=== PATIENT | male | born 1975 | race African-American/Black ===

== ENCOUNTER 2018-01-05 12:52 | Emergency (ER) | payer OTHER ==
--- NOTE | 2018-01-05 13:51 | RAD REPORT ---
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 TECHNIQUE: Axial 2 mm thick images of the cervical spine were obtained with sagittal and coronal rec onstruction images generated and reviewed. All CT scans are performed using dose optimization technique as appropriate and may include automated exposure control or mA/KV adjustment according to patient size. FINDINGS: Cervical body alignment is normal. C5-6 and C6-7 disc space narrowing seen. C5 body has a slight wedge configuration. This is not uncommon in this setting of degenerative disc and endplate ch oswald. No acute fracture changes seen in the C5 body or elsewhere in the cervical spine. Central canal detail is inherently limited. No gross evidence of acute disc herniation. Facet joints have normal a lignment. No paraspinal mass or hematoma. IMPRESSION: Cervical spine degenerative change present as detailed involving C5-6 and C6-7. No fracture or acute finding identifiable. Central canal detail is inherently limited. Concerns for cord injury, acute traumatic disc herniation or occult bone process can be addressed with MR imaging.
--- NOTE | 2018-01-05 15:15 | EDPHYS ---
Physician Documentation [facility] Name: Ferny Meek Age: 42 yrs Sex: Male : 1975 Arrival Date: 01/05/2018 Time: 12:54 Bed 26 Private MD: Abbe Lopez ED Physician Percy Jack HPI: 01/05 15:21 This 42 yrs old Black Male presents to ER via Ambulatory with complaints of Neck jr8 Injury, Fall Injury. 15:21 The patient or guardian complains of decreased range of motion, pain. The symptoms are jr8 located diffusely. Onset: The symptoms/episode began/occurred acutely, today. Context: The problem was sustained at work. Associated signs and symptoms: The patient has no apparent associated signs or symptoms. The pain does not radiate. Modifying factors: The symptoms are alleviated by remaining still, the symptoms are aggravated by movement. Severity of symptoms: At their worst the symptoms were mild, in the emergency department the symptoms are unchanged. The patient has not experienced similar symptoms in the past. The patient has not recently seen a physician. 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 No ejection from vehicle. Stated that he felt neck jolt. Denies hitting head or neck. Complains only of neck pain . Historical: - Allergies: 13:22 No Known Allergies; aj - Home Meds: 13:22 None [Active]; aj - PMHx: 13:22 None; aj - PSHx: 13:22 None; aj - Immunization history: Last tetanus immunization: unknown. - Social history:: Smoking status: Patient uses tobacco products, smokes one-half pack cigarettes per day. - Ebola Screening: : No symptoms or risks identified at this time. ROS: 15:21 Eyes: Negative for injury, pain, redness, and discharge, ENT: Negative for injury, jr8 pain, and discharge, Cardiovascular: Negative for chest pain, palpitations, and edema, Respiratory: Negative for shortness of breath, cough, wheezing, and pleuritic chest pain, Abdomen/GI: Negative for abdominal pain, nausea, vomiting, diarrhea, and constipation, Back: Negative for injury and pain, MS/Extremity: Negative for injury and deformity, Skin: Negative for injury, rash, and discoloration, Neuro: Negative for headache, weakness, numbness, tingling, and seizure. 15:21 Neck: Positive for pain with movement, tenderness, Negative for pain at rest, bony tenderness. Exam: 15:21 Head/Face: Normocephalic, atraumatic. Eyes: Pupils equal round and reactive to light, jr8 extra-ocular motions intact. Lids and lashes normal. Conjunctiva and sclera are non-icteric and not injected. Cornea within normal limits. Periorbital areas with no swelling, redness, or edema. ENT: Nares patent. No nasal discharge, no septal abnormalities noted. Tympanic membranes are normal and external auditory canals are clear. Oropharynx with no redness, swelling, or masses, exudates, or evidence of obstruction, uvula midline. Mucous membranes moist. Chest/axilla: Normal chest wall appearance and motion. Nontender with no deformity. No lesions are appreciated. Cardiovascular: Regular rate and rhythm with a normal S1 and S2. No gallops, murmurs, or rubs. Normal PMI, no JVD. No pulse deficits. Respiratory: Lungs have equal breath sounds bilaterally, clear to auscultation and percussion. No rales, rhonchi or wheezes noted. No increased work of breathing, no retractions or nasal flaring. Abdomen/GI: Soft, non-tender, with normal bowel sounds. No distension or tympany. No guarding or rebound. No evidence of tenderness throughout. Back: No spinal tenderness. No costovertebral tenderness. Full range of motion. Skin: Warm, dry with normal turgor. Normal color with no rashes, no lesions, and no evidence of cellulitis. MS/ Extremity: Pulses equal, no cyanosis. Neurovascular intact. Full, normal range of motion. Neuro: Awake and alert, GCS 15, oriented to person, place, time, and situation. Cranial nerves II-XII grossly intact. Motor strength 5/5 in all extremities. Sensory grossly intact. Cerebellar exam normal. Normal gait. 15:21 Neck: External neck: tenderness, that is mild, of the left mid cervical area and left trapezius, C-spine: vertebral tenderness, is not appreciated, Thyroid: appears normal, Trachea: is midline with no obvious abnormalities, ROM/movement: pain, that is mild, with any movement. Vital Signs: 12:57 BP 110 / 77; Pulse 70; Resp 16; Temp 97.9; Pulse Ox 97% on R/A; Weight 79.38 kg; Height aj 5 ft. 10 in. (177.80 cm); 15:00 BP 109 / 74; Pulse 67; Resp 18; Pulse Ox 98% ; aj1 12:57 Body Mass Index 25.11 (79.38 kg, 177.80 cm) aj Nunnelly Coma Score: 12:57 Eye Response: spontaneous(4). Verbal Response: oriented(5). Motor Response: obeys aj commands(6). Total: 15. Trauma Score (Adult): 12:57 Eye Response: spontaneous(1); Verbal Response: oriented(1); Motor Response: obeys aj commands(2); Systolic BP: > 89 mm Hg(4); Respiratory Rate: 10 to 29 per min(4); Nunnelly Score: 15; Trauma Score: 12 MDM: 14:34 Patient medically screened. jr8 15:14 Data reviewed: vital signs, nurses notes, radiologic studies, CT scan, and as a result, jr8 I will discharge patient. Data interpreted: Pulse oximetry: on room air is 98 %. Interpretation: normal. Counseling: I had a detailed discussion with the patient and/or guardian regarding: the historical points, exam findings, and any diagnostic results supporting the discharge/admit diagnosis, radiology results, the need for outpatient follow up, a family practitioner, to return to the emergency department if symptoms worsen or persist or if there are any questions or concerns that arise at home. 01/05 13:24 Order name: CT C Spine; Complete Time: 14:33 aj Administered Medications: No medications were administered Disposition: 01/05/18 15:14 Discharged to Home. Impression: Sprain of ligaments of cervical spine. - Condition is Stable. - Discharge Instructions: Cervical Sprain. - Prescriptions for Ibuprofen 800 mg Oral Tablet - take 1 tablet by ORAL route every 12 hours As needed take with food; 20 tablet. Cyclobenzaprine 10 mg Oral Tablet - take 1 tablet by ORAL route every 8 hours As needed; 30 tablet. - Medication Reconciliation Form, Thank You Letter, Antibiotic Education, Prescription Opioid Use form. - Follow up: Private Physician; When: 1 week; Reason: Recheck today's complaints, Continuance of care, Re-evaluation by your physician. - Problem is new. - Symptoms have improved. Addendum: 01/07/2018 13:35 Co-signature as Attending Physician, Percy Jack MD. g s Signatures: Dispatcher [employer] Sanjuanita Bird RN RN aj1 Marifer Pillai RN RN aj Les Martinez PA PA jr8 Percy Jack MD MD gs Corrections: (The following items were deleted from the chart) 01/05 15:26 15:14 01/05/2018 15:14 Discharged to Home. Impression: Sprain of ligaments of cervical aj1 spine. Condition is Stable. Forms are Medication Reconciliation Form, Thank You Letter, Antibiotic Education, Prescription Opioid Use. Follow up: Private Physician; When: 1 week; Reason: Recheck today's complaints, Continuance of care, Re-evaluation by your physician. Problem is new. Symptoms have improved. jr8
--- NOTE | 2018-01-05 15:15 | ER ---
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 Patient remained in cab of forklift during fall. Patient reports pain to left side of neck. CMS intact in all extremities. Patient evaluated on scene by EMS. Care prior to arrival: None. Mechanism of Injury: Fall loading dock, approx 4 feet. Trauma event details: Injury occurred in the [facility], Injury occurred: in an industrial place of business Injury occurred: January 05, 2018 Injury occurred at: 11:45. 12:57 Acuity: YANELIS 4 aj 12:57 Method Of Arrival: Ambulatory aj 15:25 Transition of care: patient was not received from another setting of care. Onset of aj1 symptoms was January 05, 2018. Risk Assessment: Do you want to hurt yourself or someone else? Patient reports no desire to harm self or others. Initial Sepsis Screen: Does the patient meet any 2 criteria? No. Patient's initial sepsis screen is negative. Does the patient have a suspected source of infection? No. Patient's initial sepsis screen is negative. Trauma Activation: Alert Physician: ED Physician; Name: ; Notified At: ; Arrived At: Physician: General Surgeon; Name: not notified; Notified At: ; Arrived At: Physician: Radiology; Name: ; Notified At: ; Arrived At: Physician: Respiratory; Name: ; Notified At: ; Arrived At: Physician: Lab; Name: ; Notified At: ; Arrived At: Historical: - Allergies: 13:22 No Known Allergies; aj - Home Meds: 13:22 None [Active]; aj - PMHx: 13:22 None; aj - PSHx: 13:22 None; aj - Immunization history: Last tetanus immunization: unknown. - Social history:: Smoking status: Patient uses tobacco products, smokes one-half pack cigarettes per day. - Ebola Screening: : No symptoms or risks identified at this time. Screenin:02 Abuse screen: Denies threats or abuse. Denies injuries from another. Nutritional aj1 screening: No deficits noted. Tuberculosis screening: No symptoms or risk factors identified. 15:25 Fall Risk None identified. aj1 Primary Survey: 12:57 A: Airway: patent. Breathing/Chest: Respiratory pattern: regular, Respiratory effort: aj spontaneous, unlabored, Breath sounds: clear, Chest inspection: symmetrical rise and fall of the chest. Circulation: Skin color: pink, Skin temperature: warm, dry. Disability Alert. Assessment: 12:57 General: Appears in no apparent distress. comfortable, Behavior is calm, cooperative, aj appropriate for age. Pain: Complains of pain in left mid cervical area, left trapezius, lower cervical area, left posterior aspect of neck, left lateral aspect of neck and left anterior aspect of neck. Neuro: Level of Consciousness is awake, alert, obeys commands, Oriented to person, place, time, situation, Appropriate for age. Respiratory: Airway is patent Respiratory effort is even, unlabored, Respiratory pattern is regular, symmetrical. Derm: Skin is intact, is healthy with good turgor, Skin is pink, warm \T\ dry. normal. Musculoskeletal: Reports pain in left mid cervical area, left trapezius, lower cervical area, left posterior aspect of neck, left lateral aspect of neck and left anterior aspect of neck. 15:00 General: Appears in no apparent distress. uncomfortable, Behavior is calm, cooperative. aj1 Pain: Complains of pain in neck. Neuro: Level of Consciousness is awake, alert, obeys commands, Oriented to person, place, time, situation, Gait is steady, Speech is normal, Facial symmetry appears normal. Cardiovascular: Patient's skin is warm and dry. Respiratory: Airway is patent Respiratory effort is even, unlabored, Respiratory pattern is regular, symmetrical. GI: No signs and/or symptoms were reported involving the gastrointestinal system. : No signs and/or symptoms were reported regarding the genitourinary system. EENT: No signs and/or symptoms were reported regarding the EENT system. Derm: No signs and/or symptoms reported regarding the dermatologic system. Skin is normal. Musculoskeletal: Reports neck pain, pt CT complete. Vital Signs: 12:57 BP 110 / 77; Pulse 70; Resp 16; Temp 97.9; Pulse Ox 97% on R/A; Weight 79.38 kg; Height aj 5 ft. 10 in. (177.80 cm); 15:00 BP 109 / 74; Pulse 67; Resp 18; Pulse Ox 98% ; aj1 12:57 Body Mass Index 25.11 (79.38 kg, 177.80 cm) aj Rima Coma Score: 12:57 Eye Response: spontaneous(4). Verbal Response: oriented(5). Motor Response: obeys aj commands(6). Total: 15. Trauma Score (Adult): 12:57 Eye Response: spontaneous(1); Verbal Response: oriented(1); Motor Response: obeys aj commands(2); Systolic BP: > 89 mm Hg(4); Respiratory Rate: 10 to 29 per min(4); Rima Score: 15; Trauma Score: 12 ED Course: 12:54 Patient arrived in ED. as 12:54 Abbe Lopez MD is Private Physician. as 13:20 Triage completed. aj 13:22 Arm band placed on left wrist. Patient placed in waiting room, Patient notified of wait aj time. 13:38 CT completed. Patient tolerated procedure well. Patient moved to CT via wheelchair. sw Patient moved back from CT. 13:40 CT C Spine In Process Unspecified. EDMS 14:23 Sanjuanita Gray RN is Primary Nurse. aj1 14:34 Les Martinez PA is PHCP. jr8 14:34 Percy Jack MD is Attending Physician. jr8 15:02 Patient has correct armband on for positive identification. Bed in low position. Call aj1 light in reach. Side rails up X 1. Spouse at bedside. 15:02 No provider procedures requiring assistance completed. aj1 15:24 Patient did not have IV access during this emergency room visit. aj1 Administered Medications: No medications were administered Outcome: 15:14 Discharge ordered by . jr8 15:25 Discharged to home ambulatory. aj1 15:25 Condition: good 15:25 Discharge instructions given to patient, Instructed on discharge instructions, follow up and referral plans. medication usage, Demonstrated understanding of instructions, follow-up care, medications, Prescriptions given X 2. 15:26 Patient left the ED. aj1 Signatures: Dispatcher [employer] EDFL Sanjuanita Gray RN RN ajMarifer Valdez RN RN aj Martinez, Amelia as Les Martinez PA PA jr8 Aneta Hernandes sw
== END 2018-01-05 15:26 | disposition home or self-care (01) ==
LOC: ER 12:52
DX: S13.4XXA Sprain of ligaments of cervical spine, initial encounter (principal); W19.XXXA Unspecified fall, initial encounter; Y93.89 Activity, other specified; Y92.89 Other specified places as the place of occurrence of the external cause; F17.210 Nicotine dependence, cigarettes, uncomplicated
CPT/HCPCS: 72125; 99284

== ENCOUNTER 2018-06-20 12:04 | Emergency (ER) | payer OTHER ==
--- NOTE | 2018-06-20 13:39 | RAD REPORT ---
EXAM DESCRIPTION: Riky Soriano (2 Views)06/20/2018 1:30 pm CLINICAL HISTORY: Chest pain COMPARISON: 2014 FINDINGS: The lungs appear clear of acute infiltrate. The heart is normal size IMPRESSION: No acute abnormalities displayed
[2018-06-20 14:59] LABS: Absolute Lymphocytes (CBC) 3.3 K/uL (0.7-4.9); Absolute Monocytes 0.5 K/uL (0.1-1.3); Absolute Neutrophil 2.4 K/uL (1.8-8.0); Basophils % 0.9 % (0-1.3); Eosinophils % 4.9 % (0-4.4); Hematocrit 43.5 % (39.6-49.0); Lymphocytes % 50.7 % (15.3-44.8); MCH 29.1 pg (27.0-35.0); MCV 87.3 fL (80-100); MPV 8.1 fL (7.6-11.3); Monocytes % 7.3 % (3.3-12.3); RBC Red Blood Cell Count 4.98 M/uL (4.33-5.43)
[2018-06-20 15:09] LABS: Protime INR 1.09
[2018-06-20] MEDS ORDERED: KETOROLAC 30 MG/ML INJ ONE (15:15)
[2018-06-20 15:22] LABS: ALT/SGPT 31 U/L (12-78); AST/SGOT 22 U/L (15-37); Alkaline Phosphatase 77 U/L (45-117); BUN Blood Urea Nitrogen 20 mg/dL (7-18); Bicarbonate 29 mmol/L (21-32); Bilirubin Direct < 0.1 mg/dL (0-0.2); Bilirubin Total 0.2 mg/dL (0.2-1.0); Glucose Level 86 mg/dL (74-106); Magnesium 2.4 mg/dL (1.8-2.4); NT PRO-BNP 9 pg/mL (<125); Potassium 4.5 mmol/L (3.5-5.1); Sodium Level 139 mmol/L (136-145); Troponin (Emerg Dept Use Only) < 0.02 ng/mL (0.0-0.045)
--- NOTE | 2018-06-20 15:30 | EKG ---
Test Date: 2018-06-20 Test Time: 12:13:01 [employer] Operator: LUIZ MEASUREMENT RESULTS: Intervals: Rate: 67 IN: 162 QRSD: 90 QT: 396 QTc: 418 [place]: P: 60 IN: 162 QRS: 58 T: 46 INTERPRETIVE STATEMENTS: Normal sinus rhythm Normal ECG Compared to ECG 03/23/2015 11:05:06 ST (T wave) deviation no longer present Electronically Signed On 06-20-18 15:30:03 DIRECTOR OF PRIMARY CARE by Chilo Galaviz
--- NOTE | 2018-06-20 16:00 | EDPHYS ---
Physician Documentation [facility] Name: Ferny Meek Age: 43 yrs Sex: Male : 1975 Arrival Date: 06/20/2018 Time: 12:06 Bed 27 Private MD: Abbe Lopez ED Physician Tay Mixon HPI: 06/20 14:31 This 43 yrs old Black Male presents to ER via EMS with complaints of Back Pain. [facility] 14:31 The patient or guardian reports chest pain that is located primarily in the anterior [facility] chest wall, left. Onset: acutely, this morning. The pain radiates to left back. Associated signs and symptoms: Pertinent negatives: abdominal pain, diaphoresis, dizziness, headache, lower extremity pain, lower extremity swelling, palpitations, shortness of breath, vomiting. The chest pain is described as sharp. The patient has experienced a previous episode, diagnosed with pleurisy. This is a 43 year old male with no chronic medical conditions that presents to the ED with left sided chest pain radiating to the back beginning this morning. Patient states he was diagnosed pleurisy with similar symptoms. Patient is a smoker but denies recreational drug use. Symptoms are exacerbated with deep breath. . Historical: - Allergies: 12:15 No Known Allergies; aj - Home Meds: 12:15 None [Active]; aj - PMHx: 12:15 None; aj - PSHx: 12:15 None; aj - Immunization history:: Adult Immunizations up to date. - Social history:: Smoking status: Patient uses tobacco products, smokes one-half pack cigarettes per day. - Ebola Screening: : Patient negative for fever greater than or equal to 101.5 degrees Fahrenheit, and additional compatible Ebola Virus Disease symptoms Patient denies exposure to infectious person Patient denies travel to an Ebola-affected area in the 21 days before illness onset No symptoms or risks identified at this time. ROS: 14:31 Constitutional: Negative for fever, chills, and weight loss. jmm 14:31 Abdomen/GI: Negative for abdominal pain, nausea, vomiting, diarrhea, and constipation, MS/Extremity: Negative for injury and deformity, Neuro: Negative for headache, weakness, numbness, tingling, and seizure. 14:31 Cardiovascular: Positive for chest pain. 14:31 Back: Positive for radiated pain. 14:31 All other systems are negative. Exam: 14:31 Head/Face: atraumatic. Eyes: EOMI, no conjunctival erythema appreciated ENT: Moist [facility] Mucus Membranes Neck: Trachea midline, Supple Chest/axilla: Normal chest wall appearance and motion. Cardiovascular: Regular rate and rhythm. No edema appreciated Respiratory: Normal respirations, no respiratory distress appreciated 14:31 Back: Normal ROM Skin: General appearance color normal MS/ Extremity: Moves all extremities, no obvious deformities appreciated, no edema noted to the lower extremities Neuro: Awake and alert, normal gait Psych: Behavior is normal, Mood is normal, Patient is cooperative and pleasant 14:31 Constitutional: The patient appears in no acute distress, alert, awake. 14:31 Cardiovascular: Rate: normal, Rhythm: regular, Pulses: no pulse deficits are appreciated. Vital Signs: 12:15 BP 121 / 75; Pulse 59; Resp 17; Temp 97.8; Pulse Ox 98% on R/A; Weight 81.65 kg; Height aj 5 ft. 10 in. (177.80 cm); 14:12 BP 118 / 72; Pulse 59; Resp 18; Pulse Ox 100% on R/A; mg2 16:04 BP 116 / 79; Pulse 52; Resp 18; Pulse Ox 100% on R/A; Pain 0/10; mg2 12:15 Body Mass Index 25.83 (81.65 kg, 177.80 cm) aj MDM: 14:31 Patient medically screened. [facility] 15:59 Data reviewed: vital signs, nurses notes. Counseling: I had a detailed discussion with [facility] the patient and/or guardian regarding: the historical points, exam findings, and any diagnostic results supporting the discharge/admit diagnosis, the need for outpatient follow up, to return to the emergency department if symptoms worsen or persist or if there are any questions or concerns that arise at home. 15:59 The patient's pulmonary embolism risk score was calculated as follows: No Risks ([address] [facility] Pts). LINDSAY Risk Score: TOTAL SCORE = 0. ED course: Patient pain has decreased in the emergency department. Patient has a low risk for CAD. PERC score is negative. Patient is advised to follow up with cardiology outpatient due to tobacco use. Patient given strict return precautions. Patient understood and agrees with the plan of care. . 06/20 14:31 Order name: Basic Metabolic Panel; Complete Time: 15:[address] [facility] 06/20 14:31 Order name: CBC with Diff; Complete Time: 15:[address] [facility] 06/20 14:31 Order name: LFT's; Complete Time: 15:[address] [facility] 06/20 14:31 Order name: Magnesium; Complete Time: 15:[address] [facility] 06/20 14:31 Order name: NT PRO-BNP; Complete Time: 15:[address] [facility] 06/20 14:31 Order name: PT-INR; Complete Time: 15:[address] [facility] 06/20 12:17 Order name: XRAY Chest Pa And Lat (2 Views); Complete Time: 14:25 06/20 14:31 Order name: Troponin (emerg Dept Use Only); Complete Time: 15:[address] [facility] 06/20 14:31 Order name: EKG; Complete Time: 14:[address] [facility] 06/20 14:31 Order name: Cardiac monitoring; Complete Time: 15:[address] [facility] 06/20 14:31 Order name: EKG - Nurse/Tech; Complete Time: 15:[address] [facility] 06/20 14:31 Order name: IV Saline Lock; Complete Time: 15:[address] [facility] 06/20 14:31 Order name: Labs collected and sent; Complete Time: 15:[address] [facility] 06/20 14:31 Order name: O2 Per Protocol; Complete Time: 15:[address] [facility] 06/20 14:31 Order name: O2 Sat Monitoring; Complete Time: 15:[address] [facility] Administered Medications: 15:11 Drug: Ketorolac 30 mg Route: IVP; Infused Over: 2 mins; Site: left antecubital; tl3 16:10 Follow up: Response: No adverse reaction; Marked relief of symptoms mg2 Disposition: 15:[address] [facility] 06/21 13:51 Co-signature as Attending Physician, Tay Mixon MD I agree with the assessment and kdr plan of care. Disposition: 06/20/18 15:59 Discharged to Home. Impression: Chest pain, unspecified. - Condition is Stable. - Discharge Instructions: Nonspecific Chest Pain. - Prescriptions for Ibuprofen 800 mg Oral Tablet - take 1 tablet by ORAL route every 8 hours As needed take with food; 30 tablet. - Medication Reconciliation Form, Thank You Letter, Antibiotic Education, Prescription Opioid Use form. - Follow up: Chilo Galaviz MD; When: 2 - 3 days; Reason: Recheck today's complaints, Continuance of care, Re-evaluation by your physician. - Notes: Please follow up with cardiology for further evaluation. Please return to the ED if - You develop worsening pain - Shortness of breath - Fever - Any other concerning symptoms. Signatures: Dispatcher [employer] EDMarifer Dimas, RN RN Tay Paul MD MD kdr Mickail, Joel, PA PA jmm Lowrey, Tammy, RN RN tl3 Guanako Bishop RN RN mg2 Corrections: (The following items were deleted from the chart) 06/20 16:12 15:59 06/20/2018 15:59 Discharged to Home. Impression: Chest pain, unspecified. mg2 Condition is Stable. Forms are Medication Reconciliation Form, Thank You Letter, Antibiotic Education, Prescription Opioid Use. Follow up: Chilo Galaviz; When: 2 - 3 days; Reason: Recheck today's complaints, Continuance of care, Re-evaluation by your physician. arnav
--- NOTE | 2018-06-20 16:00 | ER ---
Nurse's Notes [facility] Name: Ferny Meek Age: 43 yrs Sex: Male : 1975 Arrival Date: 06/20/2018 Time: 12:06 Bed 27 Private MD: Abbe Lopez Diagnosis: Chest pain, unspecified Presentation: 06/20 12:14 Presenting complaint: Patient states: Reports left mid back and side pain with aj respiration that started this AM. "I think I have pleurisy, I've had it before.". Transition of care: patient was not received from another setting of care. Onset of symptoms was June 20, 2018. Risk Assessment: Do you want to hurt yourself or someone else? Patient reports no desire to harm self or others. Initial Sepsis Screen: Does the patient meet any 2 criteria? No. Patient's initial sepsis screen is negative. Does the patient have a suspected source of infection? No. Patient's initial sepsis screen is negative. Care prior to arrival: None. 12:14 Method Of Arrival: EMS: [facility] 12:14 Acuity: YANELIS 3 aj Triage Assessment: 12:15 General: Appears in no apparent distress. uncomfortable, Behavior is calm, cooperative, aj appropriate for age. Pain: Complains of pain in left subscapular area and left lateral posterior chest. Neuro: Level of Consciousness is awake, alert, obeys commands, Oriented to person, place, time, situation, Appropriate for age. Cardiovascular: Capillary refill < 3 seconds in bilateral fingers Patient's skin is warm and dry. Respiratory: Reports pain with respiration Airway is patent Respiratory effort is even, unlabored, Respiratory pattern is regular, symmetrical. Derm: Skin is intact, is healthy with good turgor, Skin is pink, warm \\T\\ dry. normal. Historical: - Allergies: 12:15 No Known Allergies; aj - Home Meds: 12:15 None [Active]; aj - PMHx: 12:15 None; aj - PSHx: 12:15 None; aj - Immunization history:: Adult Immunizations up to date. - Social history:: Smoking status: Patient uses tobacco products, smokes one-half pack cigarettes per day. - Ebola Screening: : Patient negative for fever greater than or equal to 101.5 degrees Fahrenheit, and additional compatible Ebola Virus Disease symptoms Patient denies exposure to infectious person Patient denies travel to an Ebola-affected area in the 21 days before illness onset No symptoms or risks identified at this time. Screenin:12 Abuse screen: Denies threats or abuse. Denies injuries from another. Nutritional mg2 screening: No deficits noted. Tuberculosis screening: No symptoms or risk factors identified. Fall Risk None identified. Assessment: 14:13 General: Appears in no apparent distress. comfortable, Behavior is calm, cooperative. mg2 Pain: Complains of pain in back Pain does not radiate. Pain currently is 5 out of 10 on a pain scale. Quality of pain is described as aching, Pain began gradually, this morning. Neuro: Level of Consciousness is awake, alert, obeys commands, Oriented to person, place, time, situation. Cardiovascular: Capillary refill < 3 seconds Patient's skin is warm and dry. Respiratory: Airway is patent Respiratory effort is even, unlabored, Respiratory pattern is regular, symmetrical. GI: No deficits noted. Vital Signs: 12:15 BP 121 / 75; Pulse 59; Resp 17; Temp 97.8; Pulse Ox 98% on R/A; Weight 81.65 kg; Height aj 5 ft. 10 in. (177.80 cm); 14:12 BP 118 / 72; Pulse 59; Resp 18; Pulse Ox 100% on R/A; mg2 16:04 BP 116 / 79; Pulse 52; Resp 18; Pulse Ox 100% on R/A; Pain 0/10; mg2 12:15 Body Mass Index 25.83 (81.65 kg, 177.80 cm) aj ED Course: 12:06 Patient arrived in ED. rg4 12:06 Abbe Lopez MD is Private Physician. rg4 12:15 Triage completed. aj 12:15 Arm band placed on left wrist. Patient placed in waiting room, Patient notified of wait aj time. EKG completed in triage. Results shown to MD. X-ray ordered. 13:00 Note: CALLED PT 2 TIMES WITH NO RESPONSE. Patient moved to radiology. 1 13:28 X-ray completed. Patient tolerated procedure well. 1 13:29 XRAY Chest Pa And Lat (2 Views) In Process Unspecified. EDMS 13:54 Guanako Bishop, JOSE is Primary Nurse. mg2 13:57 Darrel Madrigal PA is PHCP. jmm 13:57 Tay Mixon MD is Attending Physician. [facility] 15:19 No provider procedures requiring assistance completed. Inserted saline lock: 22 gauge mg2 in left antecubital area, using aseptic technique. Patient maintains SpO2 saturation greater than 95% on room air. 15:59 Chilo Galaviz MD is Referral Physician. jmm 16:11 Patient has correct armband on for positive identification. rn radiation on. Pulse mg2 ox on. NIBP on. 16:11 IV discontinued, intact, bleeding controlled, No redness/swelling at site. Pressure mg2 dressing applied. Administered Medications: 15:11 Drug: Ketorolac 30 mg Route: IVP; Infused Over: 2 mins; Site: left antecubital; tl3 16:10 Follow up: Response: No adverse reaction; Marked relief of symptoms mg2 Outcome: 15:59 Discharge ordered by MD. [facility] 16:11 Discharged to home ambulatory, with family. mg2 16:11 Condition: stable 16:11 Discharge instructions given to patient, Instructed on discharge instructions, follow up and referral plans. medication usage, Demonstrated understanding of instructions, follow-up care, medications, Prescriptions given X 1. 16:12 Patient left the ED. mg2 Signatures: Dispatcher [employer] EDMS Marifer Pillai RN RN Darrel Kaur PA PA jmm Harvey, Martha 1 Blanca Dykes 4 Maryanne Pagan RN RN tl3 Guanako Bishop RN RN mg2
== END 2018-06-20 16:12 | disposition home or self-care (01) ==
LOC: ER 12:04
DX: R07.9 Chest pain, unspecified (principal); F17.210 Nicotine dependence, cigarettes, uncomplicated
CPT/HCPCS: 36415; 71046; 80048; 80076; 83735; 83880; 84484; 85025; 85610; 93005; 96374; 99285

== ENCOUNTER 2018-11-29 22:19 | Emergency (ER) | payer OTHER ==
--- OUTSIDE RECORDS SUMMARY | 2018-11-29 22:21 | XMS REPORT ---
:1975 [facility] [address] [place] [address] Dr. Singh [address] [place] [id number] Care Team Providers Name Role Phone Unavailable Unavailable Unavailable Problems This patient has no known problems. Allergies, Adverse Reactions, Alerts This patient has no known allergies or adverse reactions. Medications This patient has no known medications.
[2018-11-29] MEDS ORDERED: IBUPROFEN 400 MG TAB ONE (23:32)
[2018-11-29] MEDS ORDERED: ACETAMINOPHEN 500 MG TAB ONE (23:33)
[2018-11-29] MEDS ORDERED: TETANUS & DIPHTHERIA TOX,ADULT 0.5 ML VIAL ONE (23:33)
--- NOTE | 2018-11-30 00:06 | ER ---
Nurse's Notes [facility] Name: Ferny Meek Age: 43 yrs Sex: Male : 1975 Arrival Date: 11/29/2018 Time: 22:29 Bed 16 Private MD: Diagnosis: Pain in left leg-due to fall;Abrasion, left knee Presentation: 11/29 22:29 Presenting complaint: EMS states: [place] a jb4 rectangular hole, The hole caught and stopped his fall just below the knee. he has skin tears on both sides of the leg. 22:29 Transition of care: patient was not received from another setting of care. Onset of jb4 symptoms was November 29, 2018. Risk Assessment: Do you want to hurt yourself or someone else? Patient reports no desire to harm self or others. Initial Sepsis Screen: Does the patient meet any 2 criteria? No. Patient's initial sepsis screen is negative. Does the patient have a suspected source of infection? No. Patient's initial sepsis screen is negative. Care prior to arrival: None. 22:29 Method Of Arrival: EMS: [facility] jb4 22:29 Acuity: YANELIS 3 jb4 Historical: - Allergies: 22:29 No Known Allergies; jb4 - Home Meds: 22:29 None [Active]; jb4 - PMHx: 22:29 pleurisy; jb4 - PSHx: 22:29 None; jb4 - Immunization history:: Adult Immunizations unknown, Last tetanus immunization: > 10 years ago. - Social history:: Smoking status: Patient uses tobacco products, smokes one-half pack cigarettes per day, Patient/guardian denies using alcohol. - Ebola Screening: : No symptoms or risks identified at this time. Screenin:29 Abuse screen: Denies threats or abuse. Nutritional screening: No deficits noted. jb4 Tuberculosis screening: No symptoms or risk factors identified. Fall Risk None identified. Assessment: 22:29 General: Appears in no apparent distress. uncomfortable, Behavior is calm, cooperative, jb4 appropriate for age. Pain: Complains of pain in left knee Pain does not radiate. Pain currently is 7 out of 10 on a pain scale. Quality of pain is described as burning, stabbing, Pain began suddenly. Neuro: Level of Consciousness is awake, alert, obeys commands, Oriented to person, place, time, situation. Cardiovascular: Patient's skin is warm and dry. Respiratory: Airway is patent Respiratory effort is even, unlabored, Respiratory pattern is regular, symmetrical. GI: No signs and/or symptoms were reported involving the gastrointestinal system. : EENT: No signs and/or symptoms were reported regarding the EENT system. Derm: Skin has skin tears on to the left upper [place]. Skin is dry, Skin is normal, Skin temperature is warm. Musculoskeletal: Circulation, motion, and sensation intact. 23:30 Reassessment: Patient appears in no apparent distress at this time. Patient and/or jb4 family updated on plan of care and expected duration. Pain level reassessed. Patient is alert, oriented x 3, equal unlabored respirations, skin warm/dry/pink. 11/30 00:30 Reassessment: Patient appears in no apparent distress at this time. Patient and/or jb4 family updated on plan of care and expected duration. Pain level reassessed. Patient is alert, oriented x 3, equal unlabored respirations, skin warm/dry/pink. Vital Signs: 11/29 22:29 BP 129 / 89; Pulse 70; Resp 16; Temp 98.1(O); Pulse Ox 99% on R/A; Weight 88.45 kg (R); jb4 Height 5 ft. 10 in. (177.80 cm) (R); Pain 7/10; 23:40 BP 130 / 83; Pulse 70; Resp 16; Pulse Ox 100% on R/A; 4 11/30 00:30 BP 122 / 82; Pulse 68; Resp 16; Pulse Ox 95% on R/A; [facility] 11/29 22:29 Body Mass Index 27.98 (88.45 kg, 177.80 cm) [facility] ED Course: 11/29 22:29 Patient arrived in ED. [facility] 22:29 Arm band placed on left wrist. 4 22:29 Patient has correct armband on for positive identification. Bed in low position. Call [facility] light in reach. Side rails up X 1. Pulse ox on. NIBP on. 22:31 Jin Stanford PA is PHCP. cp 22:31 Jin Hector MD is Attending Physician. cp 22:40 Abbe Correa, JOSE is Primary Nurse. jb4 22:41 Triage completed. jb4 23:02 Patient moved to radiology via stretcher. az 23:02 X-ray completed. Patient tolerated procedure well. az 23:02 Patient moved back from radiology. az 23:17 XRAY Femur LEFT In Process Unspecified. EDMS 23:17 XRAY Tib Fib LEFT In Process Unspecified. EDMS 11/30 00:04 Emmanuel Mack MD is Referral Physician. cp 00:36 No provider procedures requiring assistance completed. Patient did not have IV access jb4 during this emergency room visit. Knee immobilizer applied on left knee. 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 Lot #: [id number]. } Route: IM; Site: left deltoid; 23:30 Follow up: Response: No adverse reaction jb4 11/30 00:25 Drug: morphine 4 mg Route: IM; Site: left gluteus; jb4 00:44 Follow up: Response: No adverse reaction; Pain is decreased jb4 Outcome: 00:05 Discharge ordered by MD. cp 00:36 Discharged to home via wheelchair, with crutches, with family. jb4 00:36 Condition: stable 00:36 Discharge instructions given to patient, family, Instructed on discharge instructions, follow up and referral plans. medication usage, Demonstrated understanding of instructions, follow-up care, medications, Prescriptions given X 2. 00:45 Patient left the ED. jb4 Signatures: Dispatcher [employer] EDAZ Jin Stanford PA PA cp Bryson, James, JOSE RN jb4 Mari Cadet
--- NOTE | 2018-11-30 00:07 | EDPHYS ---
Physician Documentation [facility] Name: Ferny Meek Age: 43 yrs Sex: Male : 1975 Arrival Date: 11/29/2018 Time: 22:29 Bed 16 Private MD: ED Physician Jin Hector HPI: 11/29 22:45 This 43 yrs old Black Male presents to ER via EMS with complaints of right leg injury. cp 22:45 The patient presents with an injury, pain, that is acute, tenderness. The complaints cp affect the lateral aspect of left knee and medial aspect of left knee. 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 22:45 Onset: The symptoms/episode began/occurred just prior to arrival. Associated signs and cp symptoms: Pertinent negatives numbness. Treatment prior to arrival includes: no previous treatment. Historical: - Allergies: 22:29 No Known Allergies; jb4 - Home Meds: 22:29 None [Active]; jb4 - PMHx: 22:29 pleurisy; jb4 - PSHx: 22:29 None; jb4 - Immunization history:: Adult Immunizations unknown, Last tetanus immunization: > 10 years ago. - Social history:: Smoking status: Patient uses tobacco products, smokes one-half pack cigarettes per day, Patient/guardian denies using alcohol. - Ebola Screening: : No symptoms or risks identified at this time. ROS: 22:50 Constitutional: Negative for body aches, chills, fever, poor PO intake. cp 22:50 Eyes: Negative for injury, pain, redness, and discharge. cp 22:50 ENT: Negative for drainage from ear(s), ear pain, sore throat, difficulty swallowing, difficulty handling secretions. 22:50 Cardiovascular: Negative for chest pain, palpitations. 22:50 Respiratory: Negative for cough, shortness of breath, wheezing. 22:50 Abdomen/GI: Negative for abdominal pain, nausea, vomiting, and diarrhea. 22:50 MS/extremity: Positive for abrasion, decreased range of motion, pain, tenderness, of the left leg, Negative for deformity, paresthesias. 22:50 Neuro: Negative for altered mental status, dizziness, headache, loss of consciousness, weakness. 22:50 All other systems are negative. Exam: 23:00 Constitutional: The patient appears in no acute distress, alert, awake, non-toxic, well cp developed, well nourished. 23:00 Head/Face: Normocephalic, atraumatic. cp 23:00 Eyes: Periorbital structures: appear normal, Conjunctiva: normal, no exudate, no injection, Sclera: no appreciated abnormality, Lids and lashes: appear normal, bilaterally. 23:00 ENT: External ear(s): are unremarkable, Nose: is normal, Mouth: is normal, Posterior pharynx: is normal, airway is patent. 23:00 Neck: ROM/movement: is normal, is supple, without pain, no range of motions limitations, no nuchal rigidity. 23:00 Chest/axilla: Inspection: normal, Palpation: is normal, no crepitus, no tenderness. 23:00 Cardiovascular: Rate: normal, Rhythm: regular. 23:00 Respiratory: the patient does not display signs of respiratory distress, Respirations: normal, no use of accessory muscles, no retractions, no splinting, no tachypnea. 23:00 Abdomen/GI: Inspection: abdomen appears normal, Palpation: abdomen is soft and non-tender, in all quadrants. 23:00 Musculoskeletal/extremity: Extremities: grossly normal except: noted in the left leg: pain, tenderness, abrasions to skin of medial and lateral knee, There is no evidence of deformity, ROM: limited passive range of motion due to pain, in the right knee, Perfusion: the extremity is normally perfused throughout, Sensation intact. Vital Signs: 22:29 BP 129 / 89; Pulse 70; Resp 16; Temp 98.1(O); Pulse Ox 99% on R/A; Weight 88.45 kg (R); jb4 Height 5 ft. 10 in. (177.80 cm) (R); Pain 7/10; 23:40 BP 130 / 83; Pulse 70; Resp 16; Pulse Ox 100% on R/A; jb4 11/30 00:30 BP 122 / 82; Pulse 68; Resp 16; Pulse Ox 95% on R/A; jb4 11/29 22:29 Body Mass Index 27.98 (88.45 kg, 177.80 cm) jb4 MDM: 11/29 22:31 Patient medically screened. cp 23:55 ED course: Xrays of right femur and right tib/fib negative for acute fracture. 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 Lot #: [id number]. } Route: IM; Site: left deltoid; 23:30 Follow up: Response: No adverse reaction 4 11/30 00:25 Drug: morphine 4 mg Route: IM; Site: left gluteus; 4 00:44 Follow up: Response: No adverse reaction; Pain is decreased 4 Disposition: 11/30/18 00:05 Discharged to Home. Impression: Pain in left leg - due to fall, Abrasion, left knee. - Condition is Stable. - Discharge Instructions: Knee Immobilizer, Knee Sprain. - Prescriptions for Ibuprofen 800 mg Oral Tablet - take 1 tablet by ORAL route every 8 hours As needed take with food; 30 tablet. Tylenol- Codeine #3 300-30 mg Oral Tablet - take 2 tablets by ORAL route every 8 hours As needed no driving while taking medication; 15 tablet. - Medication Reconciliation Form, Thank You Letter, Antibiotic Education, Prescription Opioid Use form. - Follow up: Emmanuel Mack MD; When: 2 - 3 days; Reason: left knee injury. - Problem is new. - Symptoms have improved. Addendum: 12/04/2018 10:55 Co-signature as Attending Physician, Jin Hector MD I agree with the assessment and c krishnan plan of care. Signatures: Dispatcher [employer] EDDE Jin Hector MD MD cha Page, Corey, PA PA Abbe Corea, JOSE RN jb4 Corrections: (The following items were deleted from the chart) 11/30 00:07 00:05 11/30/2018 00:05 Discharged to Home. Impression: Pain in left leg - due to fall. cp Condition is Stable. Forms are Medication Reconciliation Form, Thank You Letter, Antibiotic Education, Prescription Opioid Use. Follow up: Emmanuel Mack; When: 2 - 3 days; Reason: left knee injury. Problem is new. Symptoms have improved. cp 00:45 00:07 11/30/2018 00:05 Discharged to Home. Impression: Pain in left leg - due to fall; jb4 Abrasion, left knee. Condition is Stable. Discharge Instructions: Knee Sprain, Knee Immobilizer. Prescriptions for Ibuprofen 800 mg Oral Tablet - take 1 tablet by ORAL route every 8 hours As needed take with food; 30 tablet, Tylenol-Codeine #3 300-30 mg Oral Tablet - take 2 tablets by ORAL route every 8 hours As needed no driving while taking medication; 15 tablet. and Forms are Medication Reconciliation Form, Thank You Letter, Antibiotic Education, Prescription Opioid Use. Follow up: Emmanuel Mack; When: 2 - 3 days; Reason: left knee injury. Problem is new. Symptoms have improved. cp
[2018-11-30] MEDS ORDERED: MORPHINE 4 MG/ML SYR ONE (00:28)
--- NOTE | 2018-11-30 07:58 | RAD REPORT ---
EXAM DESCRIPTION: RAD - Tib Fib Left - 11/29/2018 11:17 pm CLINICAL HISTORY: Fall, leg trauma, left lower leg pain COMPARISON: None. FINDINGS: No fracture is identified. There is no dislocation or periosteal reaction noted. No acute or suspicious bony finding. No foreign body or other soft tissue abnormality. IMPRESSION: Negative left tibia & fibula examination.
--- NOTE | 2018-11-30 10:54 | RAD REPORT ---
EXAM DESCRIPTION: RAD - Femur Left - 11/29/2018 11:17 pm CLINICAL HISTORY: Fall, left leg pain COMPARISON: None. FINDINGS: No fracture is identified. There is no dislocation or periosteal reaction noted. No acute or suspicious bony finding. No acute or destructive bone process. Lateral margin of the left femur h ead neck junction there is an approximately 2 centimeter lucent or cystic area with a thin uniform sc lerotic rim. 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 No acute component seen. This would not be relat ed to trauma. No suspicious soft tissue finding. IMPRESSION: Negative left femur examination for acute or significant finding.
== END 2018-11-30 00:45 | disposition home or self-care (01) ==
LOC: ER 22:19
DX: M79.605 Pain in left leg (principal); S80.212A Abrasion, left knee, initial encounter; F17.210 Nicotine dependence, cigarettes, uncomplicated; W17.89XA Other fall from one level to another, initial encounter; Y93.89 Activity, other specified; Y92.9 Unspecified place or not applicable; Y99.0 Civilian activity done for income or pay
CPT/HCPCS: 90471; 90714; 96372; 99284

== ENCOUNTER 2019-02-15 09:25 | Emergency (ER) | payer OTHER ==
--- OUTSIDE RECORDS SUMMARY | 2019-02-15 09:27 | XMS REPORT ---
:1975 [facility] Address [address] [place] [address] Dr. Singh [address] [place] [id number] Care Team Providers Name Role Phone Unavailable Unavailable Unavailable Problems This patient has no known problems. Allergies, Adverse Reactions, Alerts This patient has no known allergies or adverse reactions. Medications This patient has no known medications.
[2019-02-15] MEDS ORDERED: KETOROLAC 30 MG/ML INJ ONE ×2 (10:18→10:22)
[2019-02-15] MEDS ORDERED: dexAMETHasone 10 MG/ML VIAL ONE (10:18)
[2019-02-15] MEDS ORDERED: CYCLOBENZAPRINE 10 MG TAB ONE (10:18)
--- NOTE | 2019-02-15 11:00 | EDPHYS ---
Physician Documentation [facility] Name: Ferny Meek Age: 43 yrs Sex: Male : 1975 Arrival Date: 02/15/2019 Time: 09:26 Bed 16 Private MD: Abbe Lopez ED Physician Austin Christian HPI: 02/15 09:46 This 43 yrs old Black Male presents to ER via Unassigned with complaints of Back Pain. pm1 09:46 The patient presents with pain. The symptoms are located in the low back. Onset: The pm1 symptoms/episode began/occurred yesterday. The pain does not radiate. Associated signs and symptoms: Pertinent negatives: abdominal pain, chest pain, constipation, dysuria, fever, headache, hematuria, incontinence, nausea, numbness, tingling, vomiting, weakness. The problem was sustained bent over to pull 40 pound object. Modifying factors: The patient symptoms are alleviated by rest, the patient symptoms are aggravated by bending, movement. Severity of symptoms: in the emergency department the symptoms are unchanged. The patient has experienced similar episodes in the past, a few times, but today's symptoms are worse, more painful. The patient has not recently seen a physician. Historical: - Allergies: 09:55 No Known Allergies; iw - Home Meds: 09:55 None [Active]; iw - PMHx: 09:55 pleurisy; iw - PSHx: 09:55 None; iw - Immunization history:: Adult Immunizations not up to date. - Social history:: Smoking status: Patient uses tobacco products, smokes one-half pack cigarettes per day. - Ebola Screening: : Patient negative for fever greater than or equal to 101.5 degrees Fahrenheit, and additional compatible Ebola Virus Disease symptoms Patient denies exposure to infectious person Patient denies travel to an Ebola-affected area in the 21 days before illness onset No symptoms or risks identified at this time. ROS: 09:46 Constitutional: Negative for fever, chills, and weight loss, Neck: Negative for injury, pm1 pain, and swelling, Cardiovascular: Negative for chest pain, palpitations, and edema, Respiratory: Negative for shortness of breath, cough, wheezing, and pleuritic chest pain, Abdomen/GI: Negative for abdominal pain, nausea, vomiting, diarrhea, and constipation. 09:46 : Negative for injury, bleeding, discharge, and swelling, MS/Extremity: Negative for injury and deformity, Skin: Negative for injury, rash, and discoloration, Neuro: Negative for headache, weakness, numbness, tingling, and seizure. 09:46 Back: Positive for of the low back area, Negative for decreased range of motion. Exam: 09:46 Constitutional: This is a well developed, well nourished patient who is awake, alert, pm1 and in no acute distress. Head/Face: Normocephalic, atraumatic. Neck: Trachea midline, no thyromegaly or masses palpated, and no cervical lymphadenopathy. Supple, full range of motion without nuchal rigidity, or vertebral point tenderness. No Meningismus. Chest/axilla: Normal chest wall appearance and motion. Nontender with no deformity. No lesions are appreciated. Cardiovascular: Regular rate and rhythm with a normal S1 and S2. No gallops, murmurs, or rubs. Normal PMI, no JVD. No pulse deficits. Respiratory: Lungs have equal breath sounds bilaterally, clear to auscultation and percussion. No rales, rhonchi or wheezes noted. No increased work of breathing, no retractions or nasal flaring. Abdomen/GI: Soft, non-tender, with normal bowel sounds. No distension or tympany. No guarding or rebound. No evidence of tenderness throughout. 09:46 Skin: Warm, dry with normal turgor. Normal color with no rashes, no lesions, and no evidence of cellulitis. MS/ Extremity: Pulses equal, no cyanosis. Neurovascular intact. Full, normal range of motion. 09:46 Back: pain, that is mild, of the lumbar area, normal spinal alignment noted. 09:46 Neuro: Orientation: is normal, Mentation: is normal, Motor: moves all fours, strength is normal, strength is 5/5 in all extremities, able to plantar flex and dorsiflex bilateral great toes, Sensation: is normal, no obvious gross deficits, Gait: is steady, at a normal pace, without difficulty. Vital Signs: 09:41 BP 112 / 83; Pulse 66; Resp 16; Temp 97.9; Pulse Ox 97% ; Weight 90.72 kg; Height 5 ft. ms 10 in. (177.80 cm); Pain 10/10; 09:41 Body Mass Index 28.70 (90.72 kg, 177.80 cm) ms MDM: 09:31 Patient medically screened. pm1 09:46 Data reviewed: vital signs. Data interpreted: Pulse oximetry: on room air is 97 %. pm1 Interpretation: normal. Counseling: I had a detailed discussion with the patient and/or guardian regarding: the historical points, exam findings, and any diagnostic results supporting the discharge/admit diagnosis, the need for outpatient follow up, MRI of lower back, to return to the emergency department if symptoms worsen or persist or if there are any questions or concerns that arise at home. Administered Medications: 10:06 Not Given (Physician Discretion): TORadol 30 mg IVP once pm1 10:14 Drug: Flexeril 10 mg Route: PO; ae4 11:32 Follow up: Response: Pain is decreased ae4 10:14 Drug: TORadol 60 mg Route: IM; Site: right gluteus; ae4 11:32 Follow up: Response: Pain is decreased ae4 10:15 Drug: Decadron 10 mg Route: IM; Site: left gluteus; ae4 11:32 Follow up: Response: Pain is decreased ae4 Disposition: 12:08 Co-signature as Attending Physician, Austin Christian MD. rn Disposition: 02/15/19 11:00 Discharged to Home. Impression: Low back pain. - Condition is Stable. - Discharge Instructions: Back Pain, Adult, Back Injury Prevention, [id number]. - Prescriptions for Naprosyn 500 mg Oral Tablet - take 1 tablet by ORAL route 2 times per day take with food; 30 tablet. Tylenol- Codeine #3 300-30 mg Oral Tablet - take 2 tablets by ORAL route every 6 hours As needed; 20 tablet. Cyclobenzaprine 10 mg Oral Tablet - take 1 tablet by ORAL route every 8 hours As needed; 30 tablet. Medrol (He) 4 mg Oral Tablets, Dose Pack - take 1 tablet by ORAL route as directed - follow package instructions; 1 packet. - Medication Reconciliation Form, Thank You Letter, Antibiotic Education, Prescription Opioid Use form. - Follow up: Emergency Department; When: As needed; Reason: Worsening of condition. Follow up: Private Physician; When: 2 - 3 days; Reason: Recheck today's complaints, Continuance of care, Re-evaluation by your physician. - Problem is new. - Symptoms have improved. Signatures: Soco Davenport RN RN Austin Turner MD MD rn Marinas, Patrick, [employer] INSTALLER pm1 Chad Harris, JOSE RN ae4 Corrections: (The following items were deleted from the chart) 11:33 11:00 02/15/2019 11:00 Discharged to Home. Impression: Low back pain. Condition is ae4 Stable. Forms are Medication Reconciliation Form, Thank You Letter, Antibiotic Education, Prescription Opioid Use. Follow up: Emergency Department; When: As needed; Reason: Worsening of condition. Follow up: Private Physician; When: 2 - 3 days; Reason: Recheck today's complaints, Continuance of care, Re-evaluation by your physician. Problem is new. Symptoms have improved. pm1
--- NOTE | 2019-02-15 11:00 | ER ---
Nurse's Notes [facility] Name: Ferny Meek Age: 43 yrs Sex: Male : 1975 Arrival Date: 02/15/2019 Time: : Bed 16 Private MD: Abbe Lopze Diagnosis: Low back pain Presentation: 02/15 09:54 Presenting complaint: Patient states: was pulling something yesterday, felt pain in low iw center of back, pain worse when he tried to stand. Transition of care: patient was not received from another setting of care. Onset of symptoms was February 14, 2019. Risk Assessment: Do you want to hurt yourself or someone else? Patient reports no desire to harm self or others. Initial Sepsis Screen: Does the patient meet any 2 criteria? No. Patient's initial sepsis screen is negative. Does the patient have a suspected source of infection? No. Patient's initial sepsis screen is negative. Care prior to arrival: None. 09:54 Method Of Arrival: Ambulatory iw 09:54 Acuity: YANELIS 4 iw Triage Assessment: 10:35 General: Appears in no apparent distress. Behavior is calm, cooperative. Pain: ae4 Complains of pain in lumbar area, left low back, left mid back, right mid back and right low back Pain currently is 10 out of 10 on a pain scale. 10:35 Pain: Noted to be resistant to movement. EENT: No signs and/or symptoms were reported ae4 regarding the EENT system. Neuro: Level of Consciousness is awake, alert, obeys commands, Oriented to person, place, time, situation, Appropriate for age. Cardiovascular: Patient's skin is warm and dry. Respiratory: Airway is patent Respiratory effort is even, unlabored. Respiratory: Airway is patent Respiratory pattern is regular, symmetrical. GI: No signs and/or symptoms were reported involving the gastrointestinal system. : No signs and/or symptoms were reported regarding the genitourinary system. Derm: No signs and/or symptoms reported regarding the dermatologic system. Skin is normal. Musculoskeletal: No visible swelling or deformity. Historical: - Allergies: 09:55 No Known Allergies; iw - Home Meds: :55 None [Active]; iw - PMHx: :55 pleurisy; iw - PSHx: : None; iw - Immunization history:: Adult Immunizations not up to date. - Social history:: Smoking status: Patient uses tobacco products, smokes one-half pack cigarettes per day. - Ebola Screening: : Patient negative for fever greater than or equal to 101.5 degrees Fahrenheit, and additional compatible Ebola Virus Disease symptoms Patient denies exposure to infectious person Patient denies travel to an Ebola-affected area in the 21 days before illness onset No symptoms or risks identified at this time. Screenin:26 Abuse screen: Denies threats or abuse. Nutritional screening: No deficits noted. ae4 Tuberculosis screening: No symptoms or risk factors identified. Fall Risk None identified. No fall in past 12 months (0 pts). No secondary diagnosis (0 pts). No IV (0 pts). Ambulatory Aid- None/Bed Rest/Nurse Assist (0 pts). Gait- Weak (10 pts.). Mental Status- Oriented to own ability (0 pts). Vital Signs: 09:41 BP 112 / 83; Pulse 66; Resp 16; Temp 97.9; Pulse Ox 97% ; Weight 90.72 kg; Height 5 ft. ms 10 in. (177.80 cm); Pain 10/10; 09:41 Body Mass Index 28.70 (90.72 kg, 177.80 cm) ms ED Course: 09:26 Patient arrived in ED. as 09:26 Abbe Lopez MD is Private Physician. as 09:30 Chad Harris, JOSE is Primary Nurse. ae4 09:31 Ector Lew [facility]. pm1 09:31 Austin Christian MD is Attending Physician. pm1 09:54 Triage completed. iw 09:55 Arm band placed on. iw 11:27 Bed in low position. Call light in reach. Side rails up X 1. Pulse ox on. NIBP on. ae4 11:31 No provider procedures requiring assistance completed. Patient did not have IV access ae4 during this emergency room visit. Administered Medications: 10:06 Not Given (Physician Discretion): TORadol 30 mg IVP once pm1 10:14 Drug: Flexeril 10 mg Route: PO; ae4 11:32 Follow up: Response: Pain is decreased ae4 10:14 Drug: TORadol 60 mg Route: IM; Site: right gluteus; ae4 11:32 Follow up: Response: Pain is decreased ae4 10:15 Drug: Decadron 10 mg Route: IM; Site: left gluteus; ae4 11:32 Follow up: Response: Pain is decreased ae4 Outcome: 11:00 Discharge ordered by . pm1 11:31 Discharged to home ambulatory, with significant other. ae4 11:31 Condition: stable 11:31 Discharge instructions given to patient, Instructed on discharge instructions, follow up and referral plans. medication usage, Demonstrated understanding of instructions, Prescriptions given X 3. 11:33 Patient left the ED. ae4 Signatures: Gabbi Grimm Irene, RN RN Di Gifford ms, Patrick, CARBURIZING FURNACE OPERATOR CARBURIZING FURNACE OPERATOR pm1 Chad Harris RN RN ae4
== END 2019-02-15 11:33 | disposition home or self-care (01) ==
LOC: ER 09:25
DX: M54.5 Low back pain (principal)
CPT/HCPCS: 96372; 99283; J1100